=== PATIENT | male | born 1980 | race American Indian/Alaskan Native ===

== ENCOUNTER 2016-12-03 05:03 | Emergency (ER) | payer SELFPAY ==
[2016-12-03] MEDS ORDERED: TYLENOL PO ONE (05:38)
--- NOTE | 2016-12-03 06:04 | XRay Report ---
FINAL REPORT EXAM: XR FOOT 2V LT HISTORY: injury to L great toe, pain COMPARISONS: None. FINDINGS: Two nonweightbearing oblique and lateral views left foot No bone lesion, periosteal reaction, or fracture. No deformity or gross malalignment. Soft tissue irregularity over the distal great toe. IMPRESSION: No displaced fracture identified within limits of this exam. Consider additional imaging for worsening/persistent symptoms.
[2016-12-03] MEDS ORDERED: BOOSTRIX IM ONE (06:55)
[2016-12-03] MEDS ORDERED: MOTRIN PO ONE (06:56)
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
[2016-12-03] MEDS ORDERED: NACL 0.9% 500 ML IR ONE ×2 (07:48→08:20)
[2016-12-03] MEDS ORDERED: TRIPLE ANTIBIOTIC TP ONE ×2 (07:49→08:49)
[2016-12-03] MEDS ORDERED: HYDROGEN PEROXIDE ONE (07:51)
[2016-12-03] MEDS: POLYSPORIN TP ONE ×2 (08:50→08:59)
[2016-12-03] MEDS ORDERED: NORCO 5/325 PO ONE (09:16)
[2016-12-03 09:55] VITALS: BP 129/77
== END 2016-12-03 09:55 | disposition home or self-care (01) ==
LOC: ED 05:03
DX: S50.812A Abrasion of left forearm, initial encounter (principal); S90.412A Abrasion, left great toe, initial encounter; S91.302A Unspecified open wound, left foot, initial encounter; F17.210 Nicotine dependence, cigarettes, uncomplicated; W22.8XXA Striking against or struck by other objects, initial encounter; Y93.89 Activity, other specified; Y92.89 Other specified places as the place of occurrence of the external cause; Y99.8 Other external cause status
CPT/HCPCS: 90471; 90715; 99284; A6250

== ENCOUNTER 2017-11-14 16:50 | Emergency (ER) | payer SELFPAY ==
--- NOTE | 2017-11-14 20:51 | Emergency Department Report ---
ED Male HPI - General Chief complaint: Urogenital-Male Stated complaint: STD CHECK Time Seen by Provider: 11/14/17 19:25 Source: patient Mode of arrival: Ambulatory Limitations: No Limitations - History of Present Illness Initial comments: This is a 37-year-old male nontoxic, well nourished in appearance, no acute signs of distress presents to the ED with c/o of penile discharge and dyrusia x1 week. Patient denies any testicular pain or swelling. Patient denies any penile ulcers or lesions. Patient denies any nausea, vomiting, chest pain, shortness of breathe, fever, chills, headache, back pain, numbness, tingling, stiff neck. Patient stated he is concerned about STD and wants to be tested and treated empirically. Patient denies any other urinary symptoms. Patient denies any allergies or PMH. MD Complaint: penile discharge, dysuria -: week(s) (1) Location: penis Radiation: none Severity: mild Severity scale (0 -10): 3 Quality: burning Consistency: constant Improves with: none Worsens with: urination discharge, dysuria. denies: swelling, mass, rash, urinary retention, blood in urine, fever, nausea/vomiting, incontinence - Related Data Sexually active: Yes Previous Rx's Medication Instructions Recorded Last Taken Type HYDROcodone/APAP 5-325 [Kramer 1 each PO Q6HR PRN #14 tablet 11/26/13 Unknown Rx 5/325] Amoxicillin [Trimox CAP] 500 mg PO Q8H #21 capsule 01/09/14 Unknown Rx HYDROcodone/ACETAMINOPHEN [Kramer 1 each PO Q4-6H PRN #10 tablet 01/09/14 Unknown Rx 5/325 Tablet] Promethazine [Phenergan] 25 mg PO Q6H PRN #8 tablet 01/09/14 Unknown Rx HYDROcodone/APAP 5-325 [Kramer 1 each PO Q6HR PRN #9 tablet 12/03/16 Unknown Rx 5-325 mg TAB] Naproxen [Naprosyn TAB] 500 mg PO BID #30 tablet 12/03/16 Unknown Rx Amoxicillin/Potassium Clav 1 each PO BID #20 tablet 12/20/16 Unknown Rx [Augmentin 875-125 Tablet] Ibuprofen [Motrin 800 MG tab] 800 mg PO Q8H #20 tablet 12/20/16 Unknown Rx Sulfamethoxazole/Trimethoprim 1 each PO BID #14 tablet 11/14/17 Unknown Rx [Bactrim DS TAB] Allergies Allergy/AdvReac Type Severity Reaction Status Date / Time No Known Allergies Allergy Verified 12/20/16 18:56 ED Review of Systems ROS: Stated complaint: STD CHECK Other details as noted in HPI Constitutional: denies: chills, fever Eyes: denies: eye pain, eye discharge, vision change ENT: denies: ear pain, throat pain Respiratory: denies: cough, shortness of breath, wheezing Cardiovascular: denies: chest pain, palpitations Endocrine: no symptoms reported Gastrointestinal: denies: abdominal pain, nausea, diarrhea Genitourinary: dysuria, discharge. denies: urgency Musculoskeletal: denies: back pain, joint swelling, arthralgia Skin: denies: rash, lesions Neurological: denies: headache, weakness, paresthesias Psychiatric: denies: anxiety, depression Hematological/Lymphatic: denies: easy bleeding, easy bruising ED Past Medical Hx - Past Medical History Previous Medical History?: No - Surgical History Past Surgical History?: No - Social History Smoking Status: Current Every Day Smoker Substance Use Type: None - Medications Home Medications: Home Medications Medication Instructions Recorded Confirmed Last Taken Type HYDROcodone/APAP 5-325 [Kramer 1 each PO Q6HR PRN #14 tablet 11/26/13 Unknown Rx 5/325] Amoxicillin [Trimox CAP] 500 mg PO Q8H #21 capsule 01/09/14 Unknown Rx HYDROcodone/ACETAMINOPHEN [Kramer 1 each PO Q4-6H PRN #10 tablet 01/09/14 Unknown Rx 5/325 Tablet] Promethazine [Phenergan] 25 mg PO Q6H PRN #8 tablet 01/09/14 Unknown Rx HYDROcodone/APAP 5-325 [Kramer 1 each PO Q6HR PRN #9 tablet 12/03/16 Unknown Rx 5-325 mg TAB] Naproxen [Naprosyn TAB] 500 mg PO BID #30 tablet 12/03/16 Unknown Rx Amoxicillin/Potassium Clav 1 each PO BID #20 tablet 12/20/16 Unknown Rx [Augmentin 875-125 Tablet] Ibuprofen [Motrin 800 MG tab] 800 mg PO Q8H #20 tablet 12/20/16 Unknown Rx Sulfamethoxazole/Trimethoprim 1 each PO BID #14 tablet 11/14/17 Unknown Rx [Bactrim DS TAB] ED Physical Exam - General Limitations: No Limitations General appearance: alert, in no apparent distress - Head Head exam: Present: atraumatic, normocephalic - Eye Eye exam: Present: normal appearance Pupils: Present: normal accommodation - ENT ENT exam: Present: normal exam, mucous membranes moist - Neck Neck exam: Present: normal inspection, full ROM - Respiratory Respiratory exam: Present: normal lung sounds bilaterally. Absent: respiratory distress - Cardiovascular Cardiovascular Exam: Present: regular rate, normal rhythm. Absent: systolic murmur, diastolic murmur, rubs, gallop - GI/Abdominal GI/Abdominal exam: Present: soft, normal bowel sounds. Absent: distended, tenderness, guarding, rebound, rigid, diminished bowel sounds - Rectal Rectal exam: Present: deferred - Extremities Exam Extremities exam: Present: normal inspection, full ROM, normal capillary refill - Back Exam Back exam: Present: normal inspection, full ROM. Absent: tenderness, CVA tenderness (R), CVA tenderness (L), muscle spasm, paraspinal tenderness, vertebral tenderness, rash noted - Neurological Exam Neurological exam: Present: alert, oriented X3, normal gait - Psychiatric Psychiatric exam: Present: normal affect, normal mood - Skin Skin exam: Present: warm, dry, intact, normal color. Absent: rash ED Course Vital Signs 11/14/17 17:25 Temperature 98.6 F Pulse Rate 89 Respiratory 18 Rate Blood Pressure 123/77 O2 Sat by Pulse 100 Oximetry - Reevaluation(s) Reevaluation #1: 11/14/17 21:05 Patient is speaking in full sentences with no signs of distress noted. ED Medical Decision Making - Medical Decision Making This is a 37-year-old male that presents with possible STD and dysuria. Patient is stable was examined by me. There is no abdominal tenderness. UA obtained. Gonorrhea chlamydia swab pending. Patient was instructed to return in 2 days for GC results. Patient wanted empirical treatment so patient received 1 g Rocephin and 1 g of azithromycin by mouth. Urine culture pending. Patient was instructed to Follow-up with a primary care doctor in 3-5 days or if symptoms worsen and continue return to emergency room as soon as possible. At time of discharge, the patient does not seem toxic or ill in appearance. No acute signs of distress noted. Patient agrees to discharge treatment plan of care. No further questions noted by the patient. Critical care attestation.: If time is entered above; I have spent that time in minutes in the direct care of this critically ill patient, excluding procedure time. ED Disposition Clinical Impression: Possible exposure to STD, Dysuria Disposition: DC- TO HOME OR SELFCARE Is pt being admited?: No Does the pt Need Aspirin: No Condition: Stable Instructions: Safe Sex (ED) Additional Instructions: Follow-up with a primary care doctor in 3-5 days or if symptoms worsen and continue return to emergency room as soon as possible. Return in 2 days for gonorrhea chlamydia results. Prescriptions: Sulfamethoxazole/Trimethoprim [Bactrim DS TAB] 1 each PO BID #14 tablet Referrals: PRIMARY CAREMD [Primary Care Provider] - 3-5 Days SCARLETT WHITE MD [Staff Physician] - 3-5 Days [facility] [Outside] - 3-5 Days Forms: Work/School Release Form(ED)
[2017-11-14] MEDS ORDERED: XYLOCAINE 1% MPF 5 mL INFILTRATI ONE (21:07)
[2017-11-14] MEDS ORDERED: ZITHROMAX PO ONE (21:07)
[2017-11-14] MEDS ORDERED: ROCEPHIN IM ONE (21:07)
[2017-11-14 22:04] LABS: Bilirubin,Urine NEG (Negative); Blood,Urine NEG (Negative); Color,Urine Yellow (Yellow); Mucus,Urine FEW /HPF; Protein,Urine <15 mg/dL mg/dL (Negative)
[2017-11-14 22:34] VITALS: BP 120/72
== END 2017-11-14 22:33 | disposition home or self-care (01) ==
LOC: ED 16:50
DX: R36.9 Urethral discharge, unspecified (principal); R30.0 Dysuria; F17.200 Nicotine dependence, unspecified, uncomplicated; Z79.899 Other long term (current) drug therapy
CPT/HCPCS: 81001; 87086; 87591; 96372; 99283; J0696